=== PATIENT | male | born 1995 | race Caucasian/White ===

== ENCOUNTER 2024-12-25 14:32 | Emergency (ER) | payer BC, SELFPAY ==
[2024-12-25 14:41] VITALS: BP 155/86
[2024-12-25 15:05] LABS: Hematocrit 45.3 % (39.0-52.0); Hemoglobin 15.0 g/dL (13.0-18.0); Mean Corp Hgb Conc. 33.1 g/dL (33.0-37.0); Mean Corpuscular Volume 86.9 fL (80.0-94.0); Nucleated Red Blood Cells % 0 % (-); Platelet Count 258 10^3/uL (130-400); Red Cell Dist. Width 14.0 % (11.5-14.5)
[2024-12-25 15:19] LABS: ALT (SGPT) 27 U/L (0-50); AST (SGOT) 27 U/L (17-59); Albumin 5.1 g/dl (3.5-5.0); Alkaline Phosphatase 85 U/L (38-126); Blood Urea Nitrogen 29 mg/dl (9-20); Calcium 10.0 mg/dl (8.4-10.2); Carbon Dioxide 31 mmol/L (22-30); Chloride 104 mmol/L (98-107); Glucose 81 mg/dl (70-99); Potassium 3.8 mmol/L (3.5-5.1); Sodium 141 mmol/L (135-145); Total Protein 7.8 g/dl (6.3-8.2); eGFR > 60.00
[2024-12-25 15:28] LABS: Troponin I < 0.012 ng/ml
[2024-12-25 19:24] VITALS: BP 107/59
--- NOTE | 2024-12-25 19:33 | ED.GENMED ---
History of Present Illness
General
Chief Complaint: Cardiac Symptoms
Time Seen by Provider: 12/25/24 19:19
History of Present Illness
History of Present Illness:
29-year-old male with history of anxiety and depression presents to the emergency department for evaluation of sudden onset of central chest pain that occurred at approximately 2-2 30 today. He states it felt like 'Nayan sam to be in the
chest'. The episode of pain lasted approximately 15 seconds with radiation of symptoms to the arm before improving. He had a subsequent episode later in the afternoon that was comparable to this. He has had no pain or chest pressure since
arriving to the emergency department. He denies any heart palpitations, shortness of breath, headaches, or near syncope. Former tobacco user, no chronic medical problems, does have a positive family history of precocious coronary disease
Review of Systems
Review of Systems
Allergies reviewed?: Yes
All Other Systems: ROS reviewed and negative except as documented in HPI and ROS
Phy Exam
Physical Exam
Physical Exam:
GEN: Well appearing, NAD, WDWN
HEENT: Oral mucosa moist, no scleral icterus
Cardiac: Regular rate and rhythm, no murmurs
Lung: No respiratory distress, no tachypnea, lungs clear to auscultation bilaterally
MSK: No gross deformity or injuries
Skin: Good color, no pallor or jaundice, no rashes
Neuro: AO x3, moves all extremities freely
Psych: Calm, cooperative
Course
Orders/Labs/Results
Orders:
Orders
12/25/24 14:36
ECG [Electrocardiogram (*1)] Urgent
Reason for Study: Chest Pain
EKG- Treatment ONCE
12/25/24 14:53
Complete Blood Count/With Diff Urgent
Comprehensive Metabolic Panel Urgent
Troponin I Urgent
12/25/24 19:33
CR Chest - 2 Views Urgent
Comment:
Reason For Exam: chest pain
Abnormal Lab Results
12/25/24
14:53
Carbon Dioxide 31 H mmol/L
(22-30)
BUN 29 H mg/dl
(9-20)
Creatinine 1.4 H mg/dL
(0.7-1.3)
Albumin 5.1 H g/dl
(3.5-5.0)
12/25/24 14:53
12/25/24 14:53
Vital Signs
Initial and Last Documented VS:
Initial Vital Signs
Temp Pulse Resp BP Pulse Ox
98.5 F 80 16 155/86 100
12/25/24 14:41 12/25/24 14:41 12/25/24 14:41 12/25/24 14:41 12/25/24 14:41
Last Documented Vital Signs
Temp Pulse Resp BP Pulse Ox
98.5 F 59 17 107/59 100
12/25/24 14:41 12/25/24 19:25 12/25/24 19:25 12/25/24 19:24 12/25/24 19:35
MDM/Problems Addressed
MDM/Problems Addressed:
Patient's EKG and labs are reassuring however he has noted to have mildly abnormal BUN/creatinine with uncertain baseline. I encouraged him to have this followed up by his primary care physician in 1 to 2 weeks. In regards to the chest pain labs
and chest x-ray are clear. Low clinical suspicion for ACS or PE given resolution of symptoms at this point
Comment
Comment:
EKG independently interpreted by me shows a normal sinus rhythm at a rate of [address] changes concerning for ischemia
*Pulse Oximetry
SaO2: 100
Oxygen Mode of Delivery: Room air
Patient hypoxic: no
*Critical Care Note
Total Time (30-74mins, 75-104mins- exclusive of procedures): Not Applicable
ED Attending Note
-
Portions of this chart may have been created with voice recognition software.� Occasional wrong word or��sound alike� substitutions may have occurred due to the inherent limitations of voice recognition software.
Discharge Plan
Departure
Patient Disposition: Home (Routine Discharge)
Date of Disposition: 12/25/24
Time of Disposition: 20:11
Patient with high blood pressure during this ER visit?: No
Discharge Problem:
Atypical chest pain
Instructions: Chest Pain (DC)
Referrals:
NONE,* [Active, Internal Medicine]
Activity Restrictions/Additional Instructions:
Your kidney function was slightly abnormal on lab work. This could indicate dehydration. Please have this followed up by your primary care doctor in 1-2 weeks
If you do not have a primary care physician, please contact the following for an appointment:
[facility]
[address]
[place] [address]
[phone]
Interventions
Interventions:
*Risk Screen - Suicide Last Done: 12/25/24 19:39
*General Assessment Last Done: 12/25/24 19:39
*Neglect/Abuse Screening Last Done: 12/25/24 19:39
*Nursing Disposition Last Done: 12/25/24 20:54
ED- Pulmonary Assessment Last Done: 12/25/24 19:42
ED- Cardiac Assessment Last Done: 12/25/24 19:42
Discharge Date and Time
Discharge Date/Time: 12/25/24 20:54
Print Language: [place] K[place]
== END 2024-12-25 20:54 | disposition home or self-care (01) ==
LOC: EMR 14:32
PROVIDERS: Emergency Medicine; EMERGENCY PHYSICIAN Emergency Medicine; FAMILY PHYSICIAN Student in an Organized Health Care Education/Training Program
DX: R07.89 Other chest pain (principal); Z87.891 Personal history of nicotine dependence
CPT/HCPCS: 99285; 71046; 80053; 84484; 85025; 93005